=== PATIENT | male | born 1975 | race Native Hawaiian/Other Pacific Islander ===

== ENCOUNTER 2020-06-08 17:02 | Emergency (ER) | payer OTHER ==
[~2020-06-08] VITALS: Ht 172.7 cm; Wt 90.7 kg
[2020-06-08 17:38] LABS: PLATELET COUNT 264 K/uL (142-355)
[2020-06-08 17:45] LABS: POTASSIUM 4.3 mmol/L (3.6-5.2)
[2020-06-08 19:22] VITALS: BP 113/67; TEMP 98.8
== END 2020-06-08 19:22 ==
LOC: ED 17:02
PROVIDERS: Hospitalist
DX: M54.5 Low back pain (principal); G89.29 Other chronic pain; R31.9 Hematuria, unspecified
CPT/HCPCS: 36415; 80053; 81000; 83690; 85027; 96360; 96374; 96375; 99284; J1885; J2405